=== PATIENT | female | born 1990 | race Caucasian/White ===

== ENCOUNTER 2017-03-02 10:24 | Emergency (ER) | payer OTHER ==
[~2017-03-02] VITALS: Ht 147.3 cm; Wt 37.3 kg
[~2017-03-02 10:24] MED LIST: PERCOCET 325 MG1 TA3 PO; ZOFRAN ODT4 MG PO
[2017-03-02 10:38] VITALS: BP 105/75; TEMP 99.1
[2017-03-02 11:41] VITALS: PULSE 81
== END 2017-03-02 11:42 | disposition home or self-care (01) ==
LOC: COL.ER 10:24
DX: J02.9 Acute pharyngitis, unspecified (principal); F17.210 Nicotine dependence, cigarettes, uncomplicated